=== PATIENT | female | born 1985 | race Caucasian/White ===

== ENCOUNTER 2017-11-14 19:44 | Emergency (ER) | payer SELFPAY ==
[~2017-11-14] VITALS: Ht 160 cm; Wt 59.4 kg
[2017-11-14 20:17] VITALS: Ht 160 cm; Wt 59.4 kg
[2017-11-14 22:52] LABS: RED CELL DISTRIBUTION WIDTH 13.3 % (11.5-14.5)
[2017-11-14 22:57] LABS: BASOPHIL % 2.6 % (0-2); PLATELET COUNT 491 x10^3mcL (130-400)
[2017-11-14 23:02] LABS: CALCIUM 8.9 mg/dL (8.5-10.1); CARBON DIOXIDE 27.9 mmol/L (21-32); CHLORIDE SERUM 104 mmol/L (98-107); CREATININE SERUM 0.7 mg/dL (0.6-1.0); GFR1 > 60 mL/min; GLUCOSE SERUM 101 mg/dL (74-106); POTASSIUM SERUM 4.3 mmol/L (3.5-5.1); SODIUM SERUM 139 mmol/L (136-145)
[2017-11-14 23:15] LABS: ALKALINE PHOSPHATASE 88 U/L (46-116); ALT/SGPT 18 U/L (14-59); AST/SGOT 15 U/L (15-37); BILIRUBIN TOTAL 0.3 mg/dL (0.20-1.00); FREE T4 1.24 ng/dL (0.76-1.46); TOTAL PROTEIN, SERUM 7.4 g/dL (6.4-8.2)
[2017-11-14 23:23] LABS: ALBUMIN 2.8 g/dL (3.4-5.0)
[2017-11-15 04:43] VITALS: BP 127/77
== END 2017-11-15 04:00 | disposition home or self-care (01) ==
LOC: ED 19:44
PROVIDERS: Emergency Medicine
DX: M54.6 Pain in thoracic spine (principal); R06.02 Shortness of breath; R91.1 Solitary pulmonary nodule; M25.511 Pain in right shoulder; Z86.79 Personal history of other diseases of the circulatory system
CPT/HCPCS: 36415; 83880; 84439; 85378; Q9967